=== PATIENT | female | born 1960 | race Caucasian/White ===

== ENCOUNTER 2016-07-01 15:17 | Inpatient (IN) | payer OTHER, BC ==
[~2016-07-01] VITALS: Ht 167.6 cm; Wt 95.0 kg
[~2016-07-01 15:17] MED LIST: CELEXA20 MG PO; CITRACAL + D C1 EACH PO; DIOVAN40 MG PO; DIOVAN80 MG PO; LASIX40 MG PO; LEXAPRO10 MG PO; PERCOCET 5/31 TABLET PO; PREVACID30 MG PO; REGLAN5 MG PO; ULTRAM50 MG PO; VITAMIN D1000 INTUN PO
[2016-07-01 16:25] LABS: HEMATOCRIT 49.1 % (36.0-46.0); MCH 26.6 PG (29.0-34.0); MCHC 29.7 G/DL (30.0-36.0); MCV 89.6 FL (83-99); MEAN PLAT.VOLUME 9.7 uM^3 (9.5-12.4); RBC DIS.WIDTH-CV 19.1 % (11.8-14.6); RBC DIS.WIDTH-SD 61.1 % (39-53); RED BLOOD COUNT 5.48 M/uL (3.80-5.20)
[2016-07-01 16:28] LABS: CHLORIDE 94 mEq/L (99-109); POTASSIUM 3.9 mEq/L (3.7-5.4); SODIUM 135 mEq/L (136-147)
[2016-07-01 16:30] LABS: GLUCOSE 123 mg/dL (70-99)
[2016-07-01 16:31] LABS: INTER. NORMALIZED RATIO 1.1; PROTHROMBIN TIME 11.4 (9.2-11.2); PTT 29.2 (25-32)
[2016-07-01 16:32] LABS: ANION GAP 16 MEQ/L (2-14); TOTAL BILIRUBIN 0.6 mg/dL (0.0-1.0)
[2016-07-01 16:34] LABS: ALKALINE PHOSPHATASE 119 IU/L (3-129); GFR ESTIMATE (CALCULATED) 29 mL/min/; PLATELET COUNT 336 K/uL (156-360); WHITE BLOOD COUNT 15.1 K/uL (4.1-10.2)
[2016-07-01 16:35] LABS: UREA NITROGEN (BUN) 12 mg/dL (9-23)
[2016-07-01 16:41] LABS: LIPASE 29 U/L (1.0-51.0)
[2016-07-01] MEDS ORDERED: REGLAN10 MG PO (19:42)
[2016-07-01] MEDS ORDERED: ADVIL200 MG PO (19:43)
[2016-07-01] MEDS ORDERED: NEURONTIN300 MG PO (19:43)
[2016-07-02] VITALS (13 sets, daily range): BP systolic 114–145; BP diastolic 61–83
[2016-07-02 05:47] LABS: BASE EXCESS -0.5 mEq/L (-3 to +3); BICARBONATE 27.8 mEq/L (22-26); CARBOXY HGB 2.6 % (0-5); COMMENTS - BLOOD GASES C+A+; DEVICE HHFNC; FI02 80 %; METHEMOGLOBIN 2.1 % (0-1.5); O2 FLOW 50 L/MIN; PCO2 62 mm Hg (35-45); PO2 50 mm Hg (80-100); SITE RR; TOTAL RESP RATE 15 resp/min; pH 7.26 (7.35-7.45)
[2016-07-02 06:23] LABS: EOSINOPHIL (%) 0.1 % (0-5); HEMATOCRIT 39.6 % (36.0-46.0); IMMATURE GRANULOCYTE (%) 1.3 % (0.0-0.7); IMMATURE GRANULOCYTE COUNT 0.2 K/uL; INSTRUMENT ABS NEUTROPHIL CT 12.5 K/uL; LYMPHOCYTE COUNT 0.5 K/uL (1.0-2.8); MCHC 30.1 G/DL (30.0-36.0); MEAN PLAT.VOLUME 9.1 uM^3 (9.5-12.4); MONOCYTE (%) 1.1 % (3-12); MONOCYTE COUNT 0.2 K/uL (0-0.8); NEUTROPHIL (%) 93.8 % (45-76); NEUTROPHIL COUNT 12.5 K/uL (1.8-6.4); NRBC (%) 0.1 /100 WBC (0-0); PLATELET COUNT 240 K/uL (156-360); RBC DIS.WIDTH-CV 18.6 % (11.8-14.6); RBC DIS.WIDTH-SD 60.4 % (39-53); WHITE BLOOD COUNT 13.4 K/uL (4.1-10.2)
[2016-07-02 06:37] LABS: ANION GAP 7 MEQ/L (2-14); CHLORIDE 105 MEQ/L (99-109); GFR ESTIMATE (CALCULATED) > 59 mL/min/; GLUCOSE 106 mg/dL (70-99); POTASSIUM 4.3 MEQ/L (3.7-5.4); SAMPLE HEMOLYSIS CHECK 0; SAMPLE ICTERIC CHECK 0; SAMPLE LIPEMIA CHECK 0; SODIUM 138 MEQ/L (136-147); UREA NITROGEN (BUN) 10 mg/dL (9-23)
[2016-07-02 08:04] LABS: METH RESISTANT S AUREUS PCR POSITIVE (NEGATIVE)
[2016-07-02 08:05] LABS: PROBE CHECK PASS
[2016-07-02 10:42] LABS: MAGNESIUM 1.6 mg/dl (1.3-2.7)
[2016-07-03] VITALS (9 sets, daily range): BP systolic 132–144; BP diastolic 70–80
[2016-07-03 06:50] LABS: EOSINOPHIL (%) 0 % (0-5); HEMATOCRIT 40.2 % (36.0-46.0); IMMATURE GRANULOCYTE (%) 1.3 % (0.0-0.7); IMMATURE GRANULOCYTE COUNT 0.2 K/uL; INSTRUMENT ABS NEUTROPHIL CT 16.5 K/uL; LYMPHOCYTE COUNT 0.6 K/uL (1.0-2.8); MCH 26.5 PG (29.0-34.0); MCHC 30.8 G/DL (30.0-36.0); MEAN PLAT.VOLUME 9.7 uM^3 (9.5-12.4); MONOCYTE (%) 1.4 % (3-12); MONOCYTE COUNT 0.3 K/uL (0-0.8); NEUTROPHIL (%) 93.9 % (45-76); NEUTROPHIL COUNT 16.5 K/uL (1.8-6.4); PLATELET COUNT 298 K/uL (156-360); RBC DIS.WIDTH-CV 18.1 % (11.8-14.6); RED BLOOD COUNT 4.68 M/uL (3.80-5.20)
[2016-07-03 07:12] LABS: MCV 85.9 FL (83-99); WHITE BLOOD COUNT 17.6 K/uL (4.1-10.2)
[2016-07-03 07:28] LABS: ANION GAP 8 MEQ/L (2-14); CHLORIDE 97 MEQ/L (99-109); GFR ESTIMATE (CALCULATED) > 59 mL/min/; GLUCOSE 124 mg/dL (70-99); MAGNESIUM 1.5 mg/dl (1.3-2.7); POTASSIUM 3.7 MEQ/L (3.7-5.4); SAMPLE HEMOLYSIS CHECK 0; SAMPLE ICTERIC CHECK 0; SAMPLE LIPEMIA CHECK 0; SODIUM 138 MEQ/L (136-147); UREA NITROGEN (BUN) 12 mg/dL (9-23)
[2016-07-04] VITALS (8 sets, daily range): BP systolic 130–150; BP diastolic 60–80
[2016-07-04 06:08] LABS: EOSINOPHIL (%) 0 % (0-5); HEMATOCRIT 40.2 % (36.0-46.0); IMMATURE GRANULOCYTE COUNT 0.2 K/uL; INSTRUMENT ABS NEUTROPHIL CT 13.3 K/uL; LYMPHOCYTE COUNT 0.7 K/uL (1.0-2.8); MCH 26.3 PG (29.0-34.0); MCHC 30.8 G/DL (30.0-36.0); MCV 85.2 FL (83-99); MEAN PLAT.VOLUME 9.1 uM^3 (9.5-12.4); MONOCYTE (%) 1.7 % (3-12); MONOCYTE COUNT 0.3 K/uL (0-0.8); NEUTROPHIL (%) 92.5 % (45-76); NEUTROPHIL COUNT 13.3 K/uL (1.8-6.4); PLATELET COUNT 288 K/uL (156-360); RBC DIS.WIDTH-CV 18.3 % (11.8-14.6); RBC DIS.WIDTH-SD 56.7 % (39-53); RED BLOOD COUNT 4.72 M/uL (3.80-5.20); WHITE BLOOD COUNT 14.4 K/uL (4.1-10.2)
[2016-07-04 06:32] LABS: ALKALINE PHOSPHATASE 72 IU/L (3-129); ANION GAP 10 MEQ/L (2-14); CHLORIDE 96 MEQ/L (99-109); GFR ESTIMATE (CALCULATED) > 59 mL/min/; GLUCOSE 117 mg/dL (70-99); MAGNESIUM 1.6 mg/dl (1.3-2.7); POTASSIUM 3.6 MEQ/L (3.7-5.4); SAMPLE HEMOLYSIS CHECK 0; SAMPLE ICTERIC CHECK 0; SAMPLE LIPEMIA CHECK 0; SODIUM 139 MEQ/L (136-147); TOTAL BILIRUBIN 0.3 MG/DL (0.0-1.0); UREA NITROGEN (BUN) 14 mg/dL (9-23)
[2016-07-05 06:36] LABS: EOSINOPHIL (%) 0 % (0-5); HEMATOCRIT 38.4 % (36.0-46.0); IMMATURE GRANULOCYTE (%) 0.8 % (0.0-0.7); IMMATURE GRANULOCYTE COUNT 0.1 K/uL; INSTRUMENT ABS NEUTROPHIL CT 7.2 K/uL; LYMPHOCYTE COUNT 1.3 K/uL (1.0-2.8); MCH 26.9 PG (29.0-34.0); MCHC 31.3 G/DL (30.0-36.0); MCV 86.1 FL (83-99); MEAN PLAT.VOLUME 9.1 uM^3 (9.5-12.4); MONOCYTE (%) 5.5 % (3-12); MONOCYTE COUNT 0.5 K/uL (0-0.8); NEUTROPHIL (%) 79.1 % (45-76); NEUTROPHIL COUNT 7.2 K/uL (1.8-6.4); PLATELET COUNT 273 K/uL (156-360); RBC DIS.WIDTH-CV 18.3 % (11.8-14.6); RED BLOOD COUNT 4.46 M/uL (3.80-5.20)
[2016-07-05 06:38] LABS: WHITE BLOOD COUNT 9.1 K/uL (4.1-10.2)
[2016-07-05 06:47] LABS: ANION GAP 8 MEQ/L (2-14); CHLORIDE 97 MEQ/L (99-109); GFR ESTIMATE (CALCULATED) > 59 mL/min/; GLUCOSE 105 mg/dL (70-99); MAGNESIUM 1.8 mg/dl (1.3-2.7); POTASSIUM 3.4 MEQ/L (3.7-5.4); SAMPLE HEMOLYSIS CHECK 0; SAMPLE ICTERIC CHECK 0; SAMPLE LIPEMIA CHECK 0; SODIUM 139 MEQ/L (136-147); UREA NITROGEN (BUN) 17 mg/dL (9-23)
[2016-07-05 08:19] VITALS: BP 182/84
[2016-07-05 22:46] VITALS: BP 134/77
[2016-07-06 05:55] LABS: EOSINOPHIL (%) 0.1 % (0-5); IMMATURE GRANULOCYTE (%) 0.5 % (0.0-0.7); IMMATURE GRANULOCYTE COUNT 0.1 K/uL; INSTRUMENT ABS NEUTROPHIL CT 7.9 K/uL; LYMPHOCYTE COUNT 1.8 K/uL (1.0-2.8); MCH 26.5 PG (29.0-34.0); MCHC 30.5 G/DL (30.0-36.0); MEAN PLAT.VOLUME 8.9 uM^3 (9.5-12.4); MONOCYTE (%) 5.8 % (3-12); MONOCYTE COUNT 0.6 K/uL (0-0.8); NEUTROPHIL (%) 76.3 % (45-76); NEUTROPHIL COUNT 7.9 K/uL (1.8-6.4); PLATELET COUNT 287 K/uL (156-360); RBC DIS.WIDTH-CV 17.9 % (11.8-14.6); RBC DIS.WIDTH-SD 57.4 % (39-53); RED BLOOD COUNT 4.71 M/uL (3.80-5.20); WHITE BLOOD COUNT 10.3 K/uL (4.1-10.2)
[2016-07-06 06:22] LABS: ANION GAP 7 MEQ/L (2-14); CHLORIDE 99 MEQ/L (99-109); GFR ESTIMATE (CALCULATED) > 59 mL/min/; GLUCOSE 81 mg/dL (70-99); MAGNESIUM 1.8 mg/dl (1.3-2.7); POTASSIUM 3.8 MEQ/L (3.7-5.4); SAMPLE HEMOLYSIS CHECK 0; SAMPLE ICTERIC CHECK 0; SAMPLE LIPEMIA CHECK 0; SODIUM 140 MEQ/L (136-147); UREA NITROGEN (BUN) 16 mg/dL (9-23)
[2016-07-06 07:37] VITALS: BP 166/87
[2016-07-06 15:00] VITALS: BP 171/91
[2016-07-06] MEDS ORDERED: DUONEB 2.5-0.5 M3 ML AEROSOL (18:08)
[2016-07-06] MEDS ORDERED: ADVIL200 MG PO (18:08)
[2016-07-06] MEDS ORDERED: DIOVAN40 MG PO (18:08)
[2016-07-06] MEDS ORDERED: CEFDINIR300 MG PO (18:08)
[2016-07-06] MEDS ORDERED: PREDNISONE10 MG PO (18:08)
[2016-07-06] MEDS ORDERED: ENDOCET 5-3251 EACH PO (18:08)
[2016-07-06] MEDS ORDERED: OXYGEN MC (18:08)
== END 2016-07-06 19:44 | disposition home or self-care (01) | DRG 193 ==
LOC: EME → 5EAST 19:33 → EDOF 19:33 → 4WEST 19:33 → EDOF 21:17 → 4EAST 07-02 01:22 → 4WEST 07-02 01:31 → 4EAST 07-02 06:13 → 4WEST 07-02 06:17 → 5EAST 07-04 11:26
PROVIDERS: Emergency Medicine; Family Medicine; Internal Medicine; Internal Medicine Critical Care Medicine; Internal Medicine Nephrology
DX: J18.9 Pneumonia, unspecified organism (principal); G93.40 Encephalopathy, unspecified; T40.2X5A Adverse effect of other opioids, initial encounter; S22.42XA Multiple fractures of ribs, left side, initial encounter for closed fracture; W19.XXXA Unspecified fall, initial encounter; J96.01 Acute respiratory failure with hypoxia; J96.02 Acute respiratory failure with hypercapnia; E87.2 Acidosis; G89.29 Other chronic pain; M54.9 Dorsalgia, unspecified; J44.9 Chronic obstructive pulmonary disease, unspecified; F17.200 Nicotine dependence, unspecified, uncomplicated; J45.909 Unspecified asthma, uncomplicated; I25.10 Atherosclerotic heart disease of native coronary artery without angina pectoris; I95.9 Hypotension, unspecified; E66.9 Obesity, unspecified; Z98.84 Bariatric surgery status; Z79.891 Long term (current) use of opiate analgesic; Z88.2 Allergy status to sulfonamides; Z88.6 Allergy status to analgesic agent; Z88.5 Allergy status to narcotic agent
CPT/HCPCS: 36600; 70450; 70551; 71010; 71020; 71250; 72170; 74176; 80048; 80053; 82803; 83690; 83735; 83880; 84100; 85025; 85027; 85610; 85730; 86850; 86900; 86901; 87040; 87641; 94010; 94640; 94640 76; 94799; 99202; 99281; 99285; G0480; J0456; J0696; J1170; J1940; J2310; J2930; J7030; J7050; J7512

== ENCOUNTER 2016-11-01 15:58 | Emergency (ER) | payer BC ==
[~2016-11-01] VITALS: Ht 167.6 cm; Wt 93.3 kg
[~2016-11-01 15:58] MED LIST changes: +ADVIL200 MG PO; +CEFDINIR300 MG PO; +DUONEB 2.5-0.5 M3 ML AEROSOL; +ENDOCET 5-3251 EACH PO; +NEURONTIN300 MG PO; +OXYGEN MC; +PREDNISONE10 MG PO; +REGLAN10 MG PO
[2016-11-01 16:49] LABS: HEMATOCRIT 37.5 % (36.0-46.0); MCH 28.3 PG (29.0-34.0); MCHC 32.3 G/DL (30.0-36.0); MCV 87.6 FL (83-99); MEAN PLAT.VOLUME 9.4 uM^3 (9.5-12.4); PLATELET COUNT 255 K/uL (156-360); RBC DIS.WIDTH-CV 14.6 % (11.8-14.6); RBC DIS.WIDTH-SD 46.9 % (39-53); RED BLOOD COUNT 4.28 M/uL (3.80-5.20); WHITE BLOOD COUNT 12.5 K/uL (4.1-10.2)
[2016-11-01 17:04] LABS: CHLORIDE 83 mEq/L (99-109); POTASSIUM 3.1 mEq/L (3.7-5.4); SODIUM 127 mEq/L (136-147)
[2016-11-01 17:05] LABS: GLUCOSE 94 mg/dL (70-99)
[2016-11-01 17:07] LABS: ANION GAP 17 MEQ/L (2-14)
[2016-11-01 17:09] LABS: GFR ESTIMATE (CALCULATED) 49 mL/min/
[2016-11-01 17:10] LABS: UREA NITROGEN (BUN) 4 mg/dL (9-23)
[2016-11-01] MEDS ORDERED: PREDNISONE20 MG PO (20:27)
[2016-11-01 20:40] VITALS: BP 133/75
== END 2016-11-01 20:42 | disposition home or self-care (01) ==
LOC: EME 15:58
DX: J44.1 Chronic obstructive pulmonary disease with (acute) exacerbation (principal); E87.6 Hypokalemia; E86.0 Dehydration; F17.200 Nicotine dependence, unspecified, uncomplicated; R09.02 Hypoxemia; E87.1 Hypo-osmolality and hyponatremia; Z99.81 Dependence on supplemental oxygen; K21.9 Gastro-esophageal reflux disease without esophagitis; Z88.6 Allergy status to analgesic agent; Z88.2 Allergy status to sulfonamides; Z98.84 Bariatric surgery status
CPT/HCPCS: 71020; 80048; 85027; 94640; 99281; 99284; J7512